=== PATIENT | female | born 1990 | race Caucasian/White ===

== ENCOUNTER 2019-03-14 18:27 | Emergency (ER) | payer OTHER, SELFPAY ==
[2019-03-14 19:08] VITALS: BP 132/71; PULSE 95; RESP 18; TEMP 36.4; O2SAT 99; BMI 37.9
[2019-03-14 20:13] VITALS: BP 144/62; PULSE 53; RESP 18; O2SAT 96
[2019-03-14] MEDS: KETOROLAC 60 MG/2 ML VIAL 30 MG IM (20:14)
[2019-03-14] MEDS: diazePAM 5 MG TABLET PO (20:14)
[2019-03-14] MEDS: predniSONE 20 MG TABLET PO (20:15)
--- NOTE | 2019-03-14 20:18 | ED.BACK ---
HPI - Back Pain/Injury <EUSEBIO Raman - Last Filed: 03/14/19 22:08> General Chief Complaint: Back Pain/Injury Stated Complaint: right hip pinched onset couple of months Time Seen by Provider: 03/14/19 18:31 Source: patient Mode of arrival: ambulatory Limitations: no limitations History of Present Illness HPI Narrative: 28-year-old female with chronic right hip pain, presents emergency did department today complaining of an increase in her right hip pain. She states this all started at the beginning of January she has been followed by the [facility]. She states that she has had x-rays and has recently had an MRI ordered but the pain has been worse the past few days and making it hard to walk. She rates her pain as a shooting 7/10 pain that starts in her buttocks and radiates down her leg, walking and standing make it worse, rest makes it better. She denies any loss of bowel or bladder control or saddle paresthesias. She states she had a course of steroids in the past and that has helped a lot as well as Toradol. She denies any fevers, chest pain, shortness of breath, abdominal pain, nausea, vomiting, diarrhea, dysuria, or syncope. MD Complaint: back pain Related Data Home Medications Medication Instructions Recorded Confirmed valacyclovir 1,000 mg PO QDAY #0 tab 05/28/13 Previous Rx's Medication Instructions Recorded prednisone 20 mg PO DAILY 5 Days #5 tab 03/14/19 Allergies Allergy/AdvReac Type Severity Reaction Status Date / Time Cephalosporins Allergy Intermediate Rash Verified 03/14/19 20:07 Penicillins Allergy Intermediate Verified 03/14/19 20:07 Sulfa (Sulfonamide Allergy Intermediate Hives Verified 03/14/19 20:07 Antibiotics) Review of Systems <EUSEBIO Raman - Last Filed: 03/14/19 22:08> Review of Systems REVIEW OF SYSTEMS: GENERAL: Denies fever or chills. HENT: No head trauma. EYES: No double vision or vision loss. CARDIOVASCULAR: No chest pain or syncope. RESPIRATORY: No shortness of breath or cough. GASTROINTESTINAL: No nausea, vomiting, diarrhea, or constipation. GENITOURINARY: No flank pain or dysuria. MUSCULOSKELETAL: Complains of right hip pain, see HPI. INTEGUMENTARY: No rash, lesions, or pruritus. NEURO: No numbness, tingling. PSYCH: No behavior or mood changes. PFSH <EUSEBIO Raman - Last Filed: 03/14/19 22:08> Medical History No significant medical problems (Acute) Social History Smoking Status: Former smoker Social History Smoking Status: Former smoker Exam <EUSEBIO Raman - Last Filed: 03/14/19 22:08> Initial Vital Signs Initial Vital Signs: Vital Signs Temperature 97.6 F 03/14/19 19:08 Pulse Rate 95 H 03/14/19 19:08 Respiratory Rate 18 03/14/19 19:08 Blood Pressure 132/71 03/14/19 19:08 Pulse Oximetry 99 03/14/19 19:08 PHYSICAL EXAMINATION: GENERAL: Well groomed, alert, and cooperative. Answers questions promptly and appropriately. Vital signs noted. HENT: Normocephalic, atraumatic. EYES: Symmetrical, sclera white, no periorbital swelling. CARDIOVASCULAR: S1 and S2 sounds normal. Regular rate and rhythm, no murmurs, clicks, or bruits. No pedal edema. RESPIRATORY: Normal respiratory rate, trachea midline, airway patent. No stridor, nasal flaring or accessory muscle use. Lungs are clear in all [place]. MUSCULOSKELETAL: Right hip tenderness over sciatica region, no tenderness directly over the joint or in the groin. Positive straight leg test, equal sensation to lower extremities bilaterally, equal strength to lower extremities bilaterally. Normal gait and coordination. Patient seen walking to exam room. Equal tone and mass bilaterally. No spinal tenderness or deformities. EXTREMITIES: CMS intact. No pedal edema. SKIN: Warm, dry, soft, appropriate color for ethnicity. No lesions, rashes, or wounds. NEURO: Alert and Oriented X 3. No sensory deficits. PSYCH: Appropriate affect and mood. <Reginaldo Dhaliwal DO - Last Filed: 03/15/19 04:22> Initial Vital Signs Initial Vital Signs: Vital Signs Temperature 97.6 F 03/14/19 19:08 Pulse Rate 95 H 03/14/19 19:08 Respiratory Rate 18 03/14/19 19:08 Blood Pressure 132/71 03/14/19 19:08 Pulse Oximetry 99 03/14/19 19:08 Course <EUSEBIO Raman - Last Filed: 03/14/19 22:08> Course Narrative: Patient states her pain was slightly decreased with the medications however she still is having a lot of pain. She was given a prepack to take medications if she still is having pain in the morning. Next since conversation was had about, finding Valium and narcotics, and the risk that this would have. Orders Ordered: Discontinued Medications Hydrocodone Bitart/Acetaminophen (Vicodin Prepack) 1 bottle MISC SEEINSTR ONE Stop: 03/14/19 20:58 Last Admin: 03/14/19 21:06 Dose: 1 bottle Diazepam (Valium) 5 mg PO NOW ONE Stop: 03/14/19 20:06 Last Admin: 03/14/19 20:14 Dose: 5 mg Ketorolac Tromethamine (Toradol) 30 mg IM NOW ONE Stop: 03/14/19 20:06 Last Admin: 03/14/19 20:14 Dose: 30 mg Prednisone (Deltasone) 20 mg PO NOW ONE Stop: 03/14/19 20:06 Last Admin: 03/14/19 20:15 Dose: 20 mg Vital Signs - 8 hr 03/14/19 21:09 Pulse Rate 81 Respiratory Rate 17 Blood Pressure [Left Arm] 138/79 Pulse Oximetry 98 <Reginaldo Dhaliwal DO - Last Filed: 03/15/19 04:22> Orders Ordered: Discontinued Medications Hydrocodone Bitart/Acetaminophen (Vicodin Prepack) 1 bottle MISC SEEINSTR ONE Stop: 03/14/19 20:58 Last Admin: 03/14/19 21:06 Dose: 1 bottle Diazepam (Valium) 5 mg PO NOW ONE Stop: 03/14/19 20:06 Last Admin: 03/14/19 20:14 Dose: 5 mg Ketorolac Tromethamine (Toradol) 30 mg IM NOW ONE Stop: 03/14/19 20:06 Last Admin: 03/14/19 20:14 Dose: 30 mg Prednisone (Deltasone) 20 mg PO NOW ONE Stop: 03/14/19 20:06 Last Admin: 03/14/19 20:15 Dose: 20 mg Vital Signs - 8 hr 03/14/19 21:09 Pulse Rate 81 Respiratory Rate 17 Blood Pressure [Left Arm] 138/79 Pulse Oximetry 98 MDM - Back Pain/Injury <Nati EUSEBIO [place] - Last Filed: 03/14/19 22:08> Medical Records Attestation: I reviewed the patient's medical records. Lab Data Attestation: I reviewed the patient's lab results. Urine Dip Bedside Urine Glucose Negative Bedside Urine Bilirubin - Negative Bedside Urine Ketone - Negative Urine Specific [place] 1.020 Bedside Urine Occult Blood ++ Bedside Urine pH 5.5 Bedside Urine Protein - Negative Bedside Urine Urobilinogen - Negative Bedside Urine Nitrite - Negative Bedside Urine Leukocytes - Negative Esterase MDM Narrative Medical decision making narrative: Differential includes sciatica (location of pain, description of, history of ongoing right hip pain, report of negative x-ray), muscle strain, muscle sprain, bulging disc (less likely due to lack of spinal tenderness, however patient reports she has a history of bulging disc), less likely cauda equina due to lack of saddle paresthesias, neurological weakness, or sensory change. Strict return precautions given and follow-up instructions discussed. <Reginaldo Dhaliwal DO - Last Filed: 03/15/19 04:22> Lab Data Urine Dip Bedside Urine Glucose Negative Bedside Urine Bilirubin - Negative Bedside Urine Ketone - Negative Urine Specific [place] 1.020 Bedside Urine Occult Blood ++ Bedside Urine pH 5.5 Bedside Urine Protein - Negative Bedside Urine Urobilinogen - Negative Bedside Urine Nitrite - Negative Bedside Urine Leukocytes - Negative Esterase Discharge Plan Departure Patient Disposition: Home Clinical Impression: Acute hip pain Qualifiers: Laterality: right Qualified Code(s): M25.551 - Pain in right hip Discharge Date/Time: 03/14/19 21:09 Interventions: ED Discharge Assessment Last Done: 03/14/19 21:05 Instructions: DI for Sciatica Activity Restrictions/Additional Instructions: Thank you for entrusting me with your care today. As discussed, believe your hip pain may be related to sciatica. I prescribed you a small dose of pain medication as well as the prednisone help decrease inflammation. Please follow up with her primary care provider in the next few days. I suggest that you keep her scheduled MRI. Return to the emergency department if he develops chest pain, shortness of breath, high fevers, or syncope. Prescriptions: New prednisone 20 mg tablet 20 mg PO DAILY 5 Days Qty: 5 RF: 0 No Action valacyclovir 1,000 MG tablet 1,000 mg PO QDAY Qty: 0 RF: 0 <Reginaldo Dhaliwal, - Last Filed: 03/15/19 04:22> Cosign ED Attending Matthewature Attestation: I was immediately available in the department for consultation. Documentation has been reviewed. I agree with assessment and plan.
[2019-03-14] MEDS: HYDROCODONE/ACET 5/325 PREPACK 1 BOTTLE MISC (21:06)
[2019-03-14 21:09] VITALS: BP 138/79; PULSE 81; RESP 17; O2SAT 98
== END 2019-03-14 21:09 | disposition home or self-care (01) ==
PROVIDERS: Emergency Provider Nurse Practitioner; Family Provider Physician Assistant
DX: M25.551 Pain in right hip (principal)
CPT/HCPCS: 81003; 96372; 99282; 99283; J1885

== ENCOUNTER 2019-03-18 12:31 | Emergency (ER) | payer OTHER, SELFPAY ==
[2019-03-18 12:34] VITALS: BP 118/71; PULSE 90; RESP 14; TEMP 36.4; O2SAT 98
--- NOTE | 2019-03-18 13:14 | ED_ITS ---
HPI - Back Pain/Injury General Chief Complaint: Back Pain/Injury Stated Complaint: losing sensation in r foot,hip/back pain Time Seen by Provider: 03/18/19 13:00 Source: patient Mode of arrival: ambulatory Limitations: no limitations History of Present Illness HPI Narrative: 28-year-old female here for evaluation of right lower back pain with radiation down into her lower extremity. No urinary symptoms. No change in bowel symptoms. Has been seen by her primary doctor and also an outside facility regarding this. She is currently on her last day of steroids. She has pain medication and anti-inflammatories and muscle relaxers at home. She is scheduled for an MRI but that is not for another month or so. She returns today because she states that she cannot put any pressure on her leg. She did walk into the emergency department. She called her primary doctor told her to come to the emergency department for a ?steroid injection ? Related Data Home Medications Medication Instructions Recorded Confirmed valacyclovir 1,000 mg PO QDAY #0 tab 05/28/13 03/18/19 gabapentin 100 mg PO DAILY 03/18/19 03/18/19 hydrocodone-acetaminophen [Vicodin] 1 - 2 tab PO Q6H PRN 03/18/19 03/18/19 ibuprofen 600 mg PO QID PRN 03/18/19 03/18/19 meloxicam 15 mg PO DAILY 03/18/19 03/18/19 methocarbamol 500 mg PO TID 03/18/19 03/18/19 Previous Rx's Medication Instructions Recorded prednisone 20 mg PO DAILY 5 Days #5 tab 03/14/19 Allergies Allergy/AdvReac Type Severity Reaction Status Date / Time Cephalosporins Allergy Intermediate Rash Verified 03/18/19 12:38 Penicillins Allergy Intermediate Verified 03/18/19 12:38 Sulfa (Sulfonamide Allergy Intermediate Hives Verified 03/18/19 12:38 Antibiotics) Review of Systems Constitutional Denies fever(s) and Reports weakness (Right lower extremity) ENT Ears, Nose, Mouth, and Throat: Denies vertigo Cardiovascular Denies chest pain and Denies dyspnea Respiratory Denies dyspnea Gastrointestinal Gastrointestinal: Denies abdominal pain, Denies nausea and Denies vomiting Genitourinary Denies pelvic pain, Denies urinary hesitancy and Denies urinary urgency Musculoskeletal Reports back pain and Reports tingling Integumentary/Breasts Denies new lesions and Denies rash Neurologic Denies vertigo, Reports radicular pain (Right lower extremity), Reports ti ngling, Reports paresthesias and Reports weakness (Right lower extremity) Hematologic/Lymphatic Denies easy bleeding and Denies easy bruising [facility] Medical History No significant medical problems (Acute) Social History Smoking Status: Former smoker Exam Initial Vital Signs Initial Vital Signs: Vital Signs Temperature 97.5 F L 03/18/19 12:34 Pulse Rate 90 03/18/19 12:34 Respiratory Rate 14 03/18/19 12:34 Blood Pressure 118/71 03/18/19 12:34 Pulse Oximetry 98 03/18/19 12:34 Const General: cooperative, comfortable, well developed and well groomed Orientation: alert, awake and oriented x3 Resp Effort & Inspection: normal respiratory effort Cardio Rate: regular rate Back/Spine/Pelvis Other: Tenderness to palpation with a specific focal point right paraspinal region. Skin Lesions: no lesions Rashes: no rashes Neuro Cognition: normal cognition Gait: normal gait Extrem General: normal to inspection and capillary refill normal Psych Appearance: grossly normal and well kempt Course Orders Ordered: Discontinued Medications Bupivacaine HCl (Sensorcaine 0.25%) 5 ml INJ INTRA-OP ONE Stop: 03/18/19 13:15 Last Admin: 03/18/19 13:30 Dose: 5 ml Lidocaine HCl (Xylocaine 1%) 5 ml SUBCUT NOW ONE Stop: 03/18/19 13:15 Last Admin: 03/18/19 13:30 Dose: 5 ml Vital Signs - 8 hr 03/18/19 12:34 Temperature 97.5 F L Pulse Rate 90 Respiratory Rate 14 Blood Pressure 118/71 Pulse Oximetry 98 MDM - Back Pain/Injury MDM Narrative Medical decision making narrative: Patient has no red flag symptoms concerning cauda equina or fracture. She is on her last day of steroids. She has pain medication and muscle relaxers at home. Informed her that since she is on steroids and intramuscular steroid injection would be inappropriate. Informed her that I do not do spinal steroid injections. She does have a specific pinpoint area of tenderness on her lower back. I did offer her a trigger point injection which was performed with 3 cc of 1% lidocaine without epi and 3 cc of 0.25% Marcaine patient tolerated this well. Informed her that she should continue with the anti-inflammatories. She is on 100 mg of gabapentin per day. Informed her that she could talk with her primary doctor about increasing this is needed. There is no emergent indication for an MRI. Patient seemed to be extremely upset with this discussion. She states that she ?cannot put any pressure on my right leg ?however she did ambulate around the exam room and out of the emergency department without apparent issue. She was instructed she could return to the emergency department if she develops new symptoms. Discharge Plan Departure Patient Disposition: Home Clinical Impression: Low back pain radiating to right leg Discharge Date/Time: 03/18/19 14:02 Interventions: ED Discharge Assessment Last Done: 03/18/19 14:01 Instructions: DI for Low Back Pain, DI for Back Pain With Sciatica Activity Restrictions/Additional Instructions: Continue all of your medications as directed. Contact your primary provider to see if he or she can move up your MRI and to discuss possibly increasing your gabapentin. Return to the emergency department for any new or worsening symptoms Prescriptions: No Action valacyclovir 1,000 MG tablet 1,000 mg PO QDAY Qty: 0 RF: 0 prednisone 20 mg tablet 20 mg PO DAILY 5 Days Qty: 5 RF: 0 methocarbamol 500 mg tablet 500 mg PO TID RF: 0 meloxicam 15 mg tablet 15 mg PO DAILY RF: 0 gabapentin 100 mg capsule 100 mg PO DAILY RF: 0 ibuprofen 600 mg Tablet 600 mg PO QID PRN (Reason: Pain (Scale Score 4-6)) RF: 0 hydrocodone-acetaminophen [Vicodin] 5-300 mg Tablet 1 - 2 tab PO Q6H PRN (Reason: Pain (Scale Score 7-10)) RF: 0
[2019-03-18] MEDS: LIDOCAINE 1% 20 ML INJ 5 ML SUBCUT (13:30)
[2019-03-18] MEDS: BUPIVACAINE 0.25% MDV 5 ML INJ (13:30)
== END 2019-03-18 14:02 | disposition home or self-care (01) ==
PROVIDERS: Emergency Provider Emergency Medicine; Family Provider Physician Assistant
DX: M54.5 Low back pain (principal)
CPT/HCPCS: 96372; 99282; 99283

== ENCOUNTER → 2019-04-22 10:41 | Outpatient (CLI) | payer OTHER, SELFPAY ==
[2019-04-22 11:09] LABS: Mean Corpuscular HGB Conc 34.2 % (30-36); Mean Corpuscular Hemoglobin 33.1 PG (26-34); Mean Corpuscular Volume 96.8 fL (80-100); Platelet Count 259 X10^3/uL (150-400); Red Blood Cell Count 3.92 X10^6/uL (4.0-5.2); Red Cell Distribution Width 12.4 % (11.6-14.8); White Blood Cell Count 7.4 X10^3/uL (4.5-11.0)
[2019-04-22 11:29] LABS: Blood Urea Nitrogen 9 mg/dL (7-17); Carbon Dioxide 29 mmol/L (22-32); Chloride 102 mmol/L (98-107); Potassium 4.6 mmol/L (3.4-5.1); Sodium 138 mmol/L (137-145)
[2019-04-22 11:30] LABS: Calcium 9.8 mg/dL (8.4-10.2); Estimated Glomerular Filt Rate > 60.0 mL/min (>60); Glucose 105 mg/dL (70-100); HEMOLYSIS < 15 (0-50)
== END ==
PROVIDERS: Visit Provider Orthopaedic Surgery Orthopaedic Surgery of the Spine
DX: Z01.818 Encounter for other preprocedural examination (principal)
CPT/HCPCS: 36415; 80048; 85027

== ENCOUNTER 2019-05-19 12:49 | Day surgery (SDC) | payer OTHER, SELFPAY ==
[2019-05-15 10:57] VITALS: BMI 38.4
[2019-05-19] VITALS (11 sets, daily range): BP systolic 120–139; BP diastolic 66–83; PULSE 86–166; RESP 10–18; TEMP 36.2–37.8; O2SAT 95–100; BMI 36.8
--- NOTE | 2019-05-19 | DI.RAD.S_ITS ---
PROCEDURE: XR LUMBAR SPINE 2-3V INDICATIONS: L4-5 LAMINECTOMY RIGHT SIDE TECHNIQUE: 2 views of the lumbar spine were acquired. COMPARISON: None. FINDINGS: Spot fluoroscopic intraoperative images demonstrating surgical instrument with the tip projecting in the posterior paraspinal soft tissues at the level of L4-L5. Dictated by: Gui Manning M.D. on 05/19/2019 at 16:42 Approved by: Gui Manning M.D. on 05/19/2019 at 16:43
[2019-05-19] MEDS: LACTATED RINGERS 1,000 ML 42 ML IV (13:21)
--- NOTE | 2019-05-19 14:04 | PM.PREOP ---
Pre-operative Note Interval Note History & Physical reviewed/Exam performed by Physician: Yes Changes to H&P: No
[2019-05-19] MEDS: CLINDAMYCIN 900 MG/50 ML PIGGYBACK 50 MG IV (14:44)
--- NOTE | 2019-05-19 15:11 | SUR.OPER ---
Prone on spine table, head in foam head support, padded chest and pelvic supports, gel pad at knees, lower legs supported by pillows; nipples, genitalia and toes free of pressure, arms secured on foam padded arm boards at <90 degrees abduction. Tape over blanket at thigh secured to table.
[2019-05-19] MEDS: BUPIVACAINE 0.25% W/ EPI 30 ML VIAL INJ (15:27)
[2019-05-19] MEDS: methylPREDNISolone acet DEPO 40 MG/ML VIAL INJ (15:27)
--- NOTE | 2019-05-19 15:58 | P.OP_ITS ---
Operative Date/Time/Diagnoses Date of procedure: 05/19/19 Time of procedure: 14:58 Pre-op diagnosis: 1. L4-5 disc herniation 2. Lumbar radiculopathy Post-op diagnosis: same Procedure & Clinicians Procedure: 1. L4-5 right microdiscectomy 2. Utilization of microsurgical technique and operating microscope Same procedure as scheduled: Yes Indications: Patient has been having chronic back pain and worsening lumbar radiculopathy. Patient failed multiple conservative management with worsening pain weakness and numbness in her lower extremity. Patient has been having difficulty performing activity of daily living. After discussing risks benefits of treatment options, patient elected proceed with surgery. Surgeon: Jazlyn Schafer [employer]: Becca Rodriguez Click Yes if Unassisted: No Anesthesia Type: General Operative Notes Closure Type: primary Specimen(s): none sent Estimated Blood Loss (mL): 10 Blood products transfused: none Procedure in detail: Patient was seen in the preoperative area. Risks and benefits of the surgery was discussed with the patient. Informed consent was obtained from the patient and placed in the chart. Surgical site was marked. Patient was taken to the operative room. General anesthesia was administered. Prophylactic antibiotic was given to the patient less than 30 min before the incision was made. Patient was placed into a prone position on the Jose table. Patient's back was then prepped and draped in the sterile fashion. Time- out was performed at this time. Using AP and lateral C-arm imaging the interval between L4-5 was identified and marked on patient's back. A 1 inch incision 1 in from midline was made on the right side. The fascia was incised in line with skin incision. Globus MARS retractors was placed inside the incision and docked onto the L4 lamina. Using microsurgical technique and operating microscope, a L4-5 laminotomy was performed using a Kerrison rongeur. Liagamentum flavum was resected at the site of the laminotomy. The disc space at L4-5 was identified. Microdiscectomy was performed by incising the annulus with #11 blade. Microcurettes and pituitary was used to removed herniated disc fragments of disc from the epidural space. Patient was found have significant amount of adhesion from her extruded disc fragments indicating a chronic disc herniation. The fragments was freed using pituitary a micro curette and removed from the epidural space. After the microdiskectomy was completed, the area medial lateral superior and inferior to the area of the microdiskectomy was inspected and explored using a micro curette. No other impinging structure was identified. The wound was then irrigated with sterile normal saline. 40 mg Depo-Medrol was placed into the epidural space. The deep fascia was closed with 1-0 Vicryl. The subcutaneous tissue was closed with 2-0 Vicryl. The skin was closed with 4-0 Monocryl. Patient tolerated the procedure well. There were no complications. Patient was transferred recovery room in stable condition. Complications: none Post-operative Condition: stable Disposition: PACU Plan for aftercare: Discharge to home
[2019-05-19] MEDS: fentaNYL 100 MCG/2 ML INJ 50 MCG IV ×2 (16:35→16:42)
[2019-05-19] MEDS: OXYCODONE/ACETAMINOPHEN 5/325 TABLET 1 TAB PO ×2 (17:00→17:26)
[2019-05-19] MEDS: ONDANSETRON 4 MG/2 ML INJ IV (17:26)
--- NOTE | 2019-05-19 17:28 | SUR.PHASEII ---
patient c/o continued pain without relief. appears more relaxed moving about in bed without apparent difficulty or increased med. additional oral pain medication provided. states she is concerned pain medication will make her nauseated. Medicated with zofran to prevent nausea.
--- NOTE | 2019-05-19 18:00 | SUR.PHASEII ---
patient states nausea resolved prior to discharge. on moving into wheelchair had mild nausea no emesis but states she felt well enough to discharge to home. has tolerated applesauce , crackers and water with no emesis. refused aromatherapy/quesease. pt had normal gait from bed to wheelchair and than again from wheelchair to car
== END 2019-05-19 18:02 | disposition home or self-care (01) ==
PROVIDERS: Visit Provider Orthopaedic Surgery Orthopaedic Surgery of the Spine
PROC: (CPT 63030; principal; 2019-05-19 15:00)
DX: M51.16 Intervertebral disc disorders with radiculopathy, lumbar region (principal); E66.9 Obesity, unspecified; Z68.35 Body mass index [BMI] 35.0-35.9, adult
CPT/HCPCS: 63030; 72100; 76000; J1030; J1100; J2250; J2405; J2704; J3010